=== PATIENT | female | born 1950 | race African-American/Black ===

== ENCOUNTER 2016-09-24 09:58 | Inpatient (IN) ==
[2016-09-24] MEDS ORDERED: hydrALAZINE 20 MG/1 ML VIAL IV STA ×2 (10:59→12:07)
--- NOTE | 2016-09-24 10:59 | Emergency Department Note ---
Arrival - Arrival Chief Complaint: Blood Pressure Stated Complaint: bp high sent by [facility] ED Nursing Triage Note: Reports that she was sent here by her car icer r/t elevated blood pressure. 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 Mode of Arrival: Ambulatory Source: Patient Time Seen by Provider: 09/24/16 10:30 - History of Present Illness HPI Narrative: 65-year-old -[place] female is sent to the ER by her car icer for elevated blood pressure. Denies chest pain but reports she is having heart palpitations and a headache. States her blood pressure is not controlled even though her blood pressure medicines have been changed multiple times. Past medical history significant for hypertension, insulin-dependent diabetes, anemia , renal insufficiency. Primary care physician is Christine Bennett. Onset (ago): hour(s) (4) Consistency: constant Severity: mild Date of Last Menstrual Period: menopause Allergies/Adverse Reactions: Allergies Allergy/AdvReac Type Severity Reaction Status Date / Time No Known Allergies Allergy Verified 09/24/16 10:04 Home Medications: Home Medications Medication Instructions Recorded Confirmed Type Apremilast [Otezla] 30 mg PO BID 09/24/16 09/24/16 History Atorvastatin Calcium 40 mg PO BEDTIME 09/24/16 09/24/16 History Betamethasone Valerate 1 applic TOP BID 09/24/16 09/24/16 History [Betamethasone Valerate 0.1% Lotion] Insulin Glargine [Lantus] 10 unit SUBCUT BEDTIME 09/24/16 09/24/16 History Losartan Potassium 100 mg PO QAM 09/24/16 09/24/16 History Montelukast Tab [Singulair Tab] 10 mg PO BEDTIME 09/24/16 09/24/16 History Trazodone HCl 50 - 100 mg PO BEDTIME 09/24/16 09/24/16 History Valsartan 160 mg PO QAM 09/24/16 09/24/16 History clonazePAM TAB [KlonoPIN] 0.5 mg PO BID PRN 09/24/16 09/24/16 History diphenhydrAMINE HCl 25 mg PO BEDTIME PRN 09/24/16 09/24/16 History [diphenhydrAMINE Cap] Review of System - Review of System 12 point system: reviewed and no additional remarkable complaints except as stated - Review of System Cardiovascular: Present: palpitations Neurological: Present: headache Medical,Surgical,& Family Hx - Medical History Cardio: History of: Hypertension Endocrine: History of: Diabetes Mellitus (IDDM) Hematology: History of: Anemia - Social History Smoking Status: Never smoker Frequency of Alcohol Use: Occasionally Type of Drug Use: None Exam Vital Signs: Vital Signs Temperature 98.5 F 09/24/16 10:02 Pulse Rate 84 09/24/16 12:31 Respiratory Rate 20 09/24/16 13:05 Blood Pressure 144/85 09/24/16 13:05 O2 Sat by Pulse Oximetry 100 09/24/16 13:05 - General General appearance: alert, in no apparent distress, anxious - ENT ENT exam: Present: normal exam, normal oropharynx, mucous membranes moist - Chest Chest inspection: Present: normal inspection - Respiratory Respiratory exam: Present: normal lung sounds bilaterally - Cardiovascular Cardiovascular exam: Present: regular rate, normal rhythm, normal heart sounds - Abdominal Exam Abdominal exam: Present: soft, normal bowel sounds. Absent: tenderness - Extremities Exam Extremities exam: Present: normal inspection, full ROM - Neurological Exam Neurological exam: Present: alert, oriented X3, CN II-XII intact, normal gait - Psychiatric Psychiatric exam: Present: normal affect, normal mood - Skin Skin exam: Present: warm, dry Course Course Narrative: 1245: Patient offered admission to the hospital. Patient refuses. Discussed with patient risks for and disability patient voices understanding. 1300: Diallo Sandoval RN into room to discharge patient. When patient stands up she has a near syncopal episode and begins gasping for air. At this time patient agrees to come into the hospital. 1320: Patient hyperventilating in room. Will order Ativan 1 mg IV. - Consultations Consultation #1: Dr. Bennett's office Time: 10:30 (Patient scheduled apt with Dr. Bennett tomorrow for 10:00) Consultation #2: Hospitalist Time: 13:15 (Will admit to Hospitalist ) Results - Labs CBC & BMP: 09/24/16 11:03 09/24/16 10:59 Lab Results: I have reviewed the patients labs Labs: CPK: 482 Troponin: WNL - EKG EKG results: sinus rhythm - Diagnostic Findings Procedure: Chest x-ray: image reviewed by me, report reviewed by me (Borderline cardiac enlargement ), CT: image reviewed by me, report reviewed by me (Head: no acute abnormality ) Disposition Clinical Impression: Hypertension, Elevated CK, Anxiety, Palpitations Case discussed with: patient Disposition: Still a Patient Condition: Stable Contact your physician if you experience:: Shortness of breath, Other (chest pain) Return to the Emergency Department if:: Shortness of breath, Other (chest pain )
[2016-09-24] MEDS ORDERED: hydrALAZINE 20 MG/1 ML VIAL ONE (11:07)
--- NOTE | 2016-09-24 11:19 | EKG Report ---
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
[2016-09-24 11:21] LABS: Basophils % 0.3 % (0.0-0.8); Eosinophils # 0.1 10*3/uL (0.0-0.87); Hematocrit 33.5 VOL% (35.7-47.0); Hemoglobin 10.8 GM/DL (12.0-16.0); Immature Granulocytes % 0.3 %; Immature Granulocytes Absolute 0.02 #; Lymphocytes # 2.1 10*3/uL (1.4-4.0); Lymphocytes % 30.9 % (21.3-54.2); Mean Corpuscular HGB Conc 32.2 GM/DL (32-36); Mean Corpuscular Hemoglobin 25 PG (27-34); Mean Corpuscular Volume 77.5 FL (87-102); Mean Platelet Volume 9.5 FL (9.6-12.0); Monocytes # 0.5 10*3/uL (0.11-0.8); Monocytes % 7.3 % (1.7-12.7); Neutrophils # 4.1 10*3/uL (1.4-7.4); Neutrophils % 60.2 % (38.7-73.9); Platelet Count 315 T/CUMM (130-400); Red Blood Count 4.32 MC/CUMM (3.8-5.5); Red Cell Distribution Width 15.1 % (9.3-17.3); White Blood Count 6.8 T/CUMM (4-12)
[2016-09-24 11:25] LABS: Apearance,Urine Slightly Hazy (Clear); Bacteria,Urine Occasional /HPF (Few); Bilirubin,Urine Negative (Negative); Blood, Urine Negative (Negative); Glucose,Urine (UA) Negative (Negative); Ketones,Urine Negative (Negative); Mucus,Urine Occasional /LPF (Occasional); Nitrite,Urine Negative (Negative); Protein,Urine Negative; Squamous Epithelial Cell,Urine Occasional /HPF (0-10); Urine Color Straw (Yellow); Urine Urobilinogen < 2.0 EU/DL (0.2-1.0); WBC,Urine 2 /HPF (0-6)
--- NOTE | 2016-09-24 11:37 | CT Report ---
CT head/brain wo con INDICATION: Headache The total DLP is 981 mGy*cm. COMPARISON: None Technique: Serial axial tomographic images of the brain were obtained without the use of intravenous contrast. Dose reduction: This CT exam was performed using one or more of the following dose reduction techniques: Automated exposure control, automated adjustment of the mA and/or KV according to patient size, or use of iterative reconstruction technique. Findings: Mild generalized atrophy is noted with mild prominence of the sulci and cortical volume loss. Periventricular white matter hypodensity changes are noted bilaterally which do not demonstrate mass effect and are nonspecific but favored to represent sequela of chronic microvascular ischemia. There is no evidence of vascular territory infarct or acute intracranial hemorrhage. The shelley-white matter differentiation is generally maintained. There is no hydrocephalus. The basilar cisterns are patent. The visualized paranasal sinuses, mastoid air cells and middle ear cavities are predominantly clear. The included orbits and their contents appear within normal limits. The visualized osseous structures and overlying soft tissues of the skull and face demonstrate no acute abnormality. IMPRESSION: No acute intracranial abnormality. PROCEDURE INTERPRETED AT [facility] DEPARTMENT OF RADIOLOGY Final Report Signed by: Cr Sheridan
--- NOTE | 2016-09-24 12:02 | XRay Report ---
Exam: Chest 2 views Date: 09/24/2016 11:13 AM Indication: Heart fluttering hypertension palpitations Comparison study: None Findings: The heart is at upper limits of normal. Underwire bra is present. The lungs, mediastinum, and bony structures are intact. Impression: 1. Borderline cardiac enlargement without decompensation infiltrates or effusions PROCEDURE INTERPRETED AT [facility] DEPARTMENT OF RADIOLOGY Final Report Signed by: Dr. Greg Orellana
[2016-09-24 12:18] LABS: Calcium 9.3 MG/DL (8.5-10.1); Osmolality,Calculated 281.3 MOS/KG (273-304); Potassium 3.7 MMOL/L (3.5-5.1)
[2016-09-24 12:22] LABS: Troponin I Only < 0.015 NG/ML (0.00-0.045)
[2016-09-24] MEDS ORDERED: ASPIRIN 325 MG TABLET PO STA (13:15)
[2016-09-24] MEDS ORDERED: LORazepam 2 MG/1 ML VIAL IV STA (13:17)
[2016-09-24] MEDS ORDERED: ASPIRIN 325 MG TABLET ONE (13:20)
[2016-09-24] MEDS ORDERED: LORazepam 2 MG/1 ML VIAL ONE (13:20)
[2016-09-24] MEDS ORDERED: GLUCAGON 1 MG VIAL IM PRN (13:56)
[2016-09-24] MEDS ORDERED: DEXTROSE 50% 25 GM/50 ML VIAL IV PRN (13:56)
[2016-09-24] MEDS ORDERED: ACETAMINOPHEN 325 MG TABLET PO PRN (13:56)
[2016-09-24] MEDS ORDERED: ONDANSETRON 4 MG/2 ML VIAL IV PRN (13:56)
[2016-09-24] MEDS ORDERED: SODIUM CHLORIDE 0.9% 1,000 ML IV SCH (14:00)
[2016-09-24] MEDS ORDERED: NIFEdipine 10 MG CAPSULE PO PRN (14:01)
--- NOTE | 2016-09-24 14:08 | Hospitalist History & Physical ---
Assessment and Plan - Time spent with patient Time spent with patient: Greater than 30 minutes (1) Hypertension Status: Acute Assessment and plan: 09/24/16 - BP 144/85 after receiving 2 doses of Hydralazine 10mg each. Will admit to on monitor. Start IV fluids for hydration. Will start Norvasc 10mg daily and add PRN Procardia 10mg q4h PRN for BP >160/90. Will order a.m. labs. Current Visit: Yes (2) Elevated CK Status: Acute Assessment and plan: 09/24/16 - Troponin <0.015; CK-MB 3.2; Total creatine kinase 482: will repeat a.m. labs and continue to monitor. Current Visit: Yes (3) Anxiety Status: Acute Assessment and plan: 09-24-16 - patient received a dose of Ativan in non-urgent and appears to be calm at present without any increase in breathing or work of breathing. Will continue to monitor for anxiety disorder. Current Visit: Yes History of Present Illness Chief complaint: hypertension History of present illness: Ms. 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 Denies chest pain, shortness of breath, and cough. She reports working in her yard for about 3 or 4 hours and getting hot and vomited once. She denies drinking adequate fluids for hydration. Past medical history hypertension, insulin-dependent diabetes, anemia, renal insufficiency. She reports about 3 weeks ago having an upper GI scope by Dr. Martinez [facility] for c/o vomiting frequently, unknown results. Denie smoking. Occasional alcohol use on the weekends, denies illicit drug use. PCP: Lani Bennett. After discussion with Anum Diaz NP in non-urgent and Dr Weiss with hospital medicine, it was in agreement patient needed to be admitted for further evaluation and BP management. Home medications will be reviewed and reconciliation to follow. Full Code Status. Home Medications Medication Instructions Recorded Confirmed Type Apremilast [Otezla] 30 mg PO BID 09/24/16 09/24/16 History Atorvastatin Calcium 40 mg PO BEDTIME 09/24/16 09/24/16 History Betamethasone Valerate 1 applic TOP BID 09/24/16 09/24/16 History [Betamethasone Valerate 0.1% Lotion] Insulin Glargine [Lantus] 10 unit SUBCUT BEDTIME 09/24/16 09/24/16 History Losartan Potassium 100 mg PO QAM 09/24/16 09/24/16 History Montelukast Tab [Singulair Tab] 10 mg PO BEDTIME 09/24/16 09/24/16 History Trazodone HCl 50 - 100 mg PO BEDTIME 09/24/16 09/24/16 History Valsartan 160 mg PO QAM 09/24/16 09/24/16 History clonazePAM TAB [KlonoPIN] 0.5 mg PO BID PRN 09/24/16 09/24/16 History diphenhydrAMINE HCl 25 mg PO BEDTIME PRN 09/24/16 09/24/16 History [diphenhydrAMINE Cap] Allergies Allergy/AdvReac Type Severity Reaction Status Date / Time No Known Allergies Allergy Verified 09/24/16 10:04 Medical,Surgical,& Family Hx - Medical History Cardio: History of: Hypertension Endocrine: History of: Diabetes Mellitus (IDDM) Hematology: History of: Anemia - Surgical History Surgical History: noncontributory - Family History Family History: noncontributory - Social History Smoking Status: Never smoker Frequency of Alcohol Use: Occasionally Type of Drug Use: None Functional capacity: independent ambulation Review of systems: ROS completed and pertinent positives and negative in HPI. Exam - Constitutional Vitals: Period Temp Pulse Resp BP Sys/[place] Pulse Ox Last 24 Hr 98.5 F 84-99 18-20 144-209/85-128 97-100 General appearance: normal weight, no acute distress - Head Head exam: Present: normal inspection - Eye Eye exam: Present: EOMI Pupils: Present: KELLIE - ENT ENT exam: Present: other (moist membranes) - Neck Neck exam: Present: normal inspection - Respiratory Respiratory exam: Present: clear to auscultation bilaterally - Cardiovascular Cardiovascular exam: Present: regular rate and rhythm - GI/Abdominal GI/Abdominal exam: Present: normal bowel sounds, soft. Absent: firm, guarding, tenderness - Extremities Exam Extremities exam: Present: normal inspection, full ROM. Absent: edema - Neurological Exam Neurological exam: Present: alert, oriented X3, CN II-XII intact - Psychiatric Psychiatric exam: Present: normal affect, normal mood - Skin Skin exam: Present: normal color, warm, dry Results - Labs CBC & BMP: 09/24/16 11:03 09/24/16 10:59 Lab Results: I have reviewed the past 24 hour labs - Diagnostic Findings Procedure: CT: report reviewed by me (No acute intracranial abnormality ), X-ray : report reviewed by me (Borderline cardiac enlargement without decompensation infiltrates or effusions)
[2016-09-24] MEDS ORDERED: diphenhydrAMINE CAP 25 MG CAPSULE PO PRN (16:35)
[2016-09-24] MEDS ORDERED: clonazePAM 0.5 MG TABLET PO PRN (16:35)
[2016-09-24] MEDS: amLODIPine 10 MG TABLET PO SCH (18:26)
[2016-09-24] MEDS ORDERED: INSULIN GLARGINE 100 UNIT/ML SUBCUT SCH (21:00)
[2016-09-24] MEDS ORDERED: MONTELUKAST 10 MG TABLET PO SCH (21:00)
[2016-09-24] MEDS ORDERED: ATORVASTATIN 40 MG TABLET PO SCH (21:00)
[2016-09-24 21:39] LABS: Troponin I Only < 0.015 NG/ML (0.00-0.045)
[2016-09-25 04:47] LABS: Basophils % 0.4 % (0.0-0.8); Eosinophils # 0.1 10*3/uL (0.0-0.87); Eosinophils % 1.5 % (0.00-10.9); Hematocrit 31.6 VOL% (35.7-47.0); Hemoglobin 10.3 GM/DL (12.0-16.0); Immature Granulocytes % 0.4 %; Immature Granulocytes Absolute 0.03 #; Lymphocytes # 2.6 10*3/uL (1.4-4.0); Lymphocytes % 35.4 % (21.3-54.2); Mean Corpuscular HGB Conc 32.6 GM/DL (32-36); Mean Corpuscular Hemoglobin 25 PG (27-34); Mean Corpuscular Volume 77.5 FL (87-102); Monocytes # 0.5 10*3/uL (0.11-0.8); Monocytes % 6.8 % (1.7-12.7); Neutrophils # 4.1 10*3/uL (1.4-7.4); Neutrophils % 55.5 % (38.7-73.9); Platelet Count 296 T/CUMM (130-400); Red Blood Count 4.08 MC/CUMM (3.8-5.5); Red Cell Distribution Width 15.1 % (9.3-17.3); White Blood Count 7.4 T/CUMM (4-12)
[2016-09-25 05:14] LABS: Calcium 8.2 MG/DL (8.5-10.1); Osmolality,Calculated 283.3 MOS/KG (273-304); Potassium 3.8 MMOL/L (3.5-5.1)
[2016-09-25 05:16] LABS: Troponin I Only < 0.015 NG/ML (0.00-0.045)
[2016-09-25 05:21] LABS: Troponin I Only < 0.015 NG/ML (0.00-0.045)
[2016-09-25 06:47] LABS: Eosinophils 3 % (0-10); Lymphocytes 39 % (20-55); Segmented Neutrophils 52 % (50-85); Total Cells Counted 100
[2016-09-25 06:48] LABS: Hypochromasia 1+; Microcytosis 1+; Ovalocytes Slight; Platelet Estimate Normal
[2016-09-25] MEDS: amLODIPine 10 MG TABLET PO SCH (08:45)
[2016-09-25] MEDS ORDERED: VALSARTAN 160 MG TABLET PO SCH (09:00)
[2016-09-25] MEDS ORDERED: PANTOPRAZOLE 40 MG TABLET PO SCH (09:00)
[2016-09-25] MEDS ORDERED: NON-FORMULARY MEDICATION (Losartan Potassium [Losartan Potassium] 100 MG) PO SCH (09:00)
--- NOTE | 2016-09-25 11:43 | Discharge Summary ---
Hospital Course - Hospital Course Hospital Course: The patient was admitted from fast track due to elevated blood pressure. The patient had generalized weakness with some nausea at the time of admission. The symptoms improved overnight and blood pressure trend is getting better after adding Norvasc. The patient's medicines are reconciled and she is now ready for discharge home to follow-up with Lani Bennett her nurse practitioner in [place] on the . On the date of discharge, chest clear and abdomen soft. Heart has regular rate and rhythm. Discharge time required 32 minutes for preparation of documents, examination, and education. The patient is not a smoker. I gave her 4 minutes encouragement of tobacco education to avoid tobacco in the future. - Time spent with patient Time with patient DS: Greater than 30 minutes Diagnosis - Discharge Diagnosis (1) Hypertension Status: Acute Specialty Discharge - Follow Up or Referrals Discharge Plan - Discharge Data Disposition: Disch To Home/Self Care Condition at Discharge: Stable Discharge Diet: heart healthy Activity: resume usual activities as tolerated - Discharge Medications New amLODIPine [Norvasc] 10 mg PO DAILY #90 tablet Continue Atorvastatin Calcium 40 mg PO BEDTIME Valsartan 160 mg PO QAM Apremilast [Otezla] 30 mg PO BID Montelukast Tab [Singulair Tab] 10 mg PO BEDTIME diphenhydrAMINE HCl [diphenhydrAMINE Cap] 25 mg PO BEDTIME PRN PRN Reason: Insomnia Trazodone HCl 50 - 100 mg PO BEDTIME Betamethasone Valerate [Betamethasone Valerate 0.1% Lotion] 1 applic TOP BID clonazePAM TAB [KlonoPIN] 0.5 mg PO BID PRN PRN Reason: Anxiety Insulin Glargine [Lantus] 10 unit SUBCUT BEDTIME Discontinued Losartan Potassium 100 mg PO QAM - Follow Up or Referral Follow Up: Christine Bennett FNP [Advanced Practice Nurse] - 09/29/16 - Forms/Instructions Instructions: Hypertension (ED) Exam - Constitutional Vitals: Period Temp Pulse Resp BP Sys/[place] Pulse Ox Last 24 Hr 96.9 F-99.4 F 84-108 18-22 135-191/75-113 96-100 Discharge Results Labs on day of discharge: Labs from last 24 hours 09/25/16 09/25/16 09/25/16 08:18 03:45 03:45 WBC RBC Hgb Hct MCV MCH MCHC RDW Plt Count MPV Neut % (Auto) Lymph % (Auto) Crosby % (Auto) Eos % (Auto) Baso % (Auto) Neut # (Auto) Lymph # (Auto) [place] # (Auto) Eos # (Auto) Baso # (Auto) Total Counted Immature Gran % Nucleated RBC % Immature Gran # Segmented Neutrophils Lymphocytes Monocytes Eosinophils Basophils Nucleated RBCs # Platelet Estimate Hypochromasia Microcytosis Ovalocytes Sodium Potassium Chloride Carbon Dioxide Anion Gap BUN Creatinine GFR Calculation BUN/Creatinine Ratio Glucose POC Glucose 130 H Hemoglobin A1c Calculated Osmolality Calcium Magnesium Total Creatine Kinase 318 H 309 H CK-MB (CK-2) 1.2 1.4 Troponin I < 0.015 < 0.015 B-Natriuretic Peptide 09/25/16 09/25/16 09/25/16 03:45 03:45 03:45 WBC RBC Hgb Hct MCV MCH MCHC RDW Plt Count MPV Neut % (Auto) Lymph % (Auto) Crosby % (Auto) Eos % (Auto) Baso % (Auto) Neut # (Auto) Lymph # (Auto) Cros[place] # (Auto) Eos # (Auto) Baso # (Auto) Total Counted Immature Gran % Nucleated RBC % Immature Gran # Segmented Neutrophils Lymphocytes Monocytes Eosinophils Basophils Nucleated RBCs # Platelet Estimate Hypochromasia Microcytosis Ovalocytes Sodium 141 Potassium 3.8 Chloride 109 H Carbon Dioxide 23 Anion Gap 12.8 BUN 19 H Creatinine 1.10 H GFR Calculation 68 BUN/Creatinine Ratio 17.00 Glucose 112 H POC Glucose Hemoglobin A1c 7.5 H Calculated Osmolality 283.3 Calcium 8.2 L Magnesium 2.0 Total Creatine Kinase CK-MB (CK-2) Troponin I B-Natriuretic Peptide 40 09/25/16 09/24/16 09/24/16 03:45 21:15 21:06 WBC 7.4 RBC 4.08 Hgb 10.3 L Hct 31.6 L MCV 77.5 L MCH 25 L MCHC 32.6 RDW 15.1 Plt Count 296 MPV 10.0 Neut % (Auto) 55.5 Lymph % (Auto) 35.4 Crosby % (Auto) 6.8 Eos % (Auto) 1.5 Baso % (Auto) 0.4 Neut # (Auto) 4.1 Lymph # (Auto) 2.6 Crosby # (Auto) 0.5 Eos # (Auto) 0.1 Baso # (Auto) 0.0 Total Counted 100 Immature Gran % 0.4 Nucleated RBC % 0.0 Immature Gran # 0.03 Segmented Neutrophils 52 Lymphocytes 39 Monocytes 5 Eosinophils 3 Basophils 1.0 H Nucleated RBCs # 0.00 Platelet Estimate Normal Hypochromasia 1+ Microcytosis 1+ Ovalocytes Slight Sodium Potassium Chloride Carbon Dioxide Anion Gap BUN Creatinine GFR Calculation BUN/Creatinine Ratio Glucose POC Glucose 151 H Hemoglobin A1c Calculated Osmolality Calcium Magnesium Total Creatine Kinase 366 H D CK-MB (CK-2) 1.6 Troponin I < 0.015 B-Natriuretic Peptide 09/24/16 09/24/16 09/24/16 16:47 11:13 10:59 WBC RBC Hgb Hct MCV MCH MCHC RDW Plt Count MPV Neut % (Auto) Lymph % (Auto) Crosby % (Auto) Eos % (Auto) Baso % (Auto) Neut # (Auto) Lymph # (Auto) Crosby # (Auto) Eos # (Auto) Baso # (Auto) Total Counted Immature Gran % Nucleated RBC % Immature Gran # Segmented Neutrophils Lymphocytes Monocytes Eosinophils Basophils Nucleated RBCs # Platelet Estimate Hypochromasia Microcytosis Ovalocytes Sodium 141 Potassium 3.7 Chloride 107 Carbon Dioxide 25 Anion Gap 12.7 BUN 19 H Creatinine 1.00 GFR Calculation 76 BUN/Creatinine Ratio 19.00 Glucose 89 POC Glucose 209 H Hemoglobin A1c Calculated Osmolality 281.3 Calcium 9.3 Magnesium Total Creatine Kinase 482 H CK-MB (CK-2) 3.2 Troponin I < 0.015 B-Natriuretic Peptide DS: Provider Date of admission: 09/24/16 13:54 Primary care physician: . No PCP Attending physician on admission: Jadiel Weiss MD Discharging clinician: Jadiel Weiss MD
[2016-09-25 12:10] VITALS: BP 170/95
[2016-09-25] MEDS ORDERED: BETAMETHASONE VALERATE 0.1% TOP SCH (21:00)
== END 2016-09-25 15:15 | disposition home or self-care (01) | DRG 199 ==
LOC: N.ED 09:58 → N.EDINP 13:54 → N.TELES 15:09
PROVIDERS: ADMIT Internal Medicine; ATTEND Internal Medicine